=== PATIENT | female | born 1985 | race Caucasian/White ===

== ENCOUNTER 2021-05-07 11:35 | Emergency (ER) | payer MEDICAID ==
[2021-05-07] MEDS ORDERED: SODIUM CHLORIDE 0.9% 1,000 ML IV STA (12:59)
[2021-05-07] MEDS ORDERED: diphenhydrAMINE INJ 50 MG/ML VIAL IVP STA (12:59)
[2021-05-07] MEDS ORDERED: DROPERIDOL 5 MG/2 ML VIAL IVP STA (12:59)
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
[2021-05-07] MEDS ORDERED: SUMAtriptan 6 MG/0.5 ML VIAL SUBQ STA (14:01)
[2021-05-07 14:20] VITALS: BP 101/67
== END 2021-05-07 14:51 | disposition home or self-care (01) ==
LOC: ED 11:35
DX: G43.901 Migraine, unspecified, not intractable, with status migrainosus (principal)
CPT/HCPCS: 96374; 96375; 99283; J1200

== ENCOUNTER 2021-05-21 08:46 | Emergency (ER) | payer MEDICAID ==
--- NOTE | 2021-05-21 09:30 | ED Physician Documentation ---
PD HPI HEADACHE - Stated complaint Stated Complaint: HEAD PX - Chief complaint Chief Complaint: Neuro - History obtained from History obtained from: Patient - History of Present Illness Timing - onset: Yesterday Timing - onset during: Light activity Timing - duration: Days (1) Timing - details: Gradual onset, Still present, Waxing and waning (improved but not resolved temporarily with Imitrex and Ibuprofen.) Worst headache ever?: No: Worst headache ever? (feeling similar to prior migraines, but is more consistent. Has had improvement in migraines with recent Imitrex Rx, but the one yesterday was not resolved with it.) Location: Front, Right Quality: Throbbing, Aching Associated symptoms: Nausea. No: Fever, Stiff neck, Vomiting Improved by: Dark room. No: Meds (brief improved with Imitrex PO and Ibuprofen.) Worsened by: Light Similar symptoms before: Diagnosis (migraines, but are recently more frequent and had one lasted few weeks recently. Seen by PCP and has Rx for higher dose Imitrex, and pt was started on Topirimate couple days ago.) Recently seen: Clinic, Emergency Dept Review of Systems Constitutional: denies: Fever, Chills Nose: denies: Rhinorrhea / runny nose, Congestion Throat: denies: Sore throat Respiratory: denies: Cough GI: reports: Nausea. denies: Vomiting Skin: denies: Rash, Lesions Neurologic: denies: Focal weakness, Numbness, Altered mental status PD PAST MEDICAL HISTORY - Past Medical History Past Medical History: Yes Cardiovascular: None Respiratory: None Neuro: Migraines Endocrine/Autoimmune: None GI: None FOLDER OPERATOR: None : None HEENT: None Psych: Anxiety Musculoskeletal: None Derm: None - Past Surgical History Past Surgical History: Yes Derm: Skin cancer surgery - Present Medications Home Medications: Ambulatory Orders Medication Instructions Recorded Confirmed SUMAtriptan [Imitrex] 25 mg PO BID PRN #10 tablet 05/07/21 05/21/21 Ibuprofen [Motrin] 600 mg PO TID PRN #20 tab 05/21/21 Ondansetron Odt [Zofran] 4 mg TL Q6H PRN #10 tablet 05/21/21 Topiramate [Topamax] 25 mg PO HS 05/21/21 05/21/21 - Allergies Allergies/Adverse Reactions: Allergies Allergy/AdvReac Type Severity Reaction Status Date / Time No Known Drug Allergies Allergy Verified 05/21/21 09:04 - Social History Does the pt smoke?: No Smoking Status: Never smoker Does the pt drink ETOH?: No Does the pt have substance abuse?: No - Immunizations Immunizations are current?: Yes PD ED PE NORMAL - Vitals Vital signs reviewed: Yes - General General: Alert and oriented X 3, No acute distress, Well developed/nourished - HEENT HEENT: Atraumatic, Pharynx benign - Neck Neck: Supple, no meningeal sign, No adenopathy - Cardiac Cardiac: RRR, No murmur - Respiratory Respiratory: Clear bilaterally - Abdomen Abdomen: Soft, Non tender - Derm Derm: Normal color, Warm and dry - Extremities Extremities: Normal ROM s pain - Neuro Neuro: Alert and oriented X 3, 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 ), considered differential (seems migraine. She prefers trying IM meds rather than IV. ), d/w patient Departure - Departure Disposition: 01 Home, Self Care Clinical Impression: Migraine Condition: Stable Record reviewed to determine appropriate education?: Yes Prescriptions: Ibuprofen [Motrin] 600 mg PO TID PRN #20 tab PRN Reason: Pain Ondansetron Odt [Zofran] 4 mg TL Q6H PRN #10 tablet PRN Reason: Nausea / Vomiting Comments: Small frequent fluids and rest today. Can use some ibuprofen or Tylenol for persistent mild headache. Ondansetron if needed for nausea. Subsequently use the sumatriptan along with an ibuprofen and ondansetron for recurrent headaches as needed. Continue the new topiramate and hopefully that will decrease the frequency and severity of the migraines over the next couple of weeks. Follow-up with your primary care as needed. Return to the ER if needed. Discharge Date/Time: 05/21/21 11:10
[2021-05-21] MEDS ORDERED: SUMAtriptan 6 MG/0.5 ML VIAL SUBQ STA (09:48)
[2021-05-21] MEDS ORDERED: KETOROLAC 15 MG/ML VIAL IM STA (09:48)
[2021-05-21] MEDS ORDERED: ONDANSETRON ODT 4 MG TABLET TL STA (09:48)
[2021-05-21] MEDS ORDERED: CHERRY SYRUP 10 ML UDC PO ONE (10:35)
[2021-05-21] MEDS ORDERED: DEXAMETHASONE 10 MG/ML VIAL PO STA (10:35)
[2021-05-21 11:01] VITALS: BP 106/77
== END 2021-05-21 11:10 | disposition home or self-care (01) ==
LOC: ED 08:46
DX: G43.909 Migraine, unspecified, not intractable, without status migrainosus (principal)
CPT/HCPCS: 96372; 99283; 99284; A9270; Q0162

== ENCOUNTER 2021-07-26 08:21 | Outpatient (CLI) | payer MEDICAID ==
[2021-07-26 08:52] LABS: EOSINOPHILS % (AUTO) 0.8 %; HCT - HEMATOCRIT 38.6 % (37.0-47.0); HGB - HEMOGLOBIN 11.7 g/dL (12.0-16.0); LYMPHOCYTES # (AUTO) 1.4 10^3/uL (1.5-3.5); LYMPHOCYTES % (AUTO) 35.4 %; MEAN CORPUSCULAR HEMOGLOBIN 26.7 pg (27.0-31.0); MEAN CORPUSCULAR HGB CONC 30.3 g/dL (32.0-36.0); MEAN CORPUSCULAR VOLUME 88.1 fL (81.0-99.0); MEAN PLATELET VOLUME 9.9 fL (7.9-10.8); MONOCYTES # (AUTO) 0.4 10^3/uL (0.0-1.0); MONOCYTES % (AUTO) 9.4 %; NEUTROPHILS % (AUTO) 53.1 %; PLT - PLATELET COUNT 275 10^3/uL (130-450); RED BLOOD COUNT 4.38 10^6/uL (4.20-5.40); RED CELL DISTRIBUTION WIDTH 14.7 % (12.0-15.0); WHITE BLOOD COUNT 3.8 x10^3/uL (4.8-10.8)
[2021-07-26 09:15] LABS: ALBUMIN 4.3 g/dL (3.2-5.5); ALBUMIN/GLOBULIN RATIO 1.4 (1.0-2.2); ALKALINE PHOSPHATASE 65 IU/L (42-121); ALT ALANINE AMINOTRANSFERASE 21 IU/L (10-60); AST ASPARTATE AMINOTRANSFERASE 20 IU/L (10-42); BILIRUBIN,TOTAL 0.8 mg/dL (0.2-1.0); BUN - BLOOD UREA NITROGEN 11 mg/dL (6-20); CALCIUM 9.4 mg/dL (8.5-10.3); CARBON DIOXIDE - CO2 22 mmol/L (21-32); CHLORIDE 110 mmol/L (101-111); CHOLESTEROL 170 mg/dL; CREATININE 0.5 mg/dL (0.4-1.0); GFR - MDRD 139 (>89); GLUCOSE 96 mg/dL (70-100); HDL CHOLESTEROL 56 mg/dL; LDL CHOLESTEROL,CALCULATED 102 mg/dL; LDL/HDL RATIO 1.8 (<4.4); SODIUM 140 mmol/L (135-145); TOTAL PROTEIN 7.3 g/dL (6.7-8.2); TRIGLYCERIDES 59 mg/dL; VLDL CHOLESTEROL 12 mg/dL
[2021-07-26 09:26] LABS: THYROID STIMULATING HORMONE 2.88 uIU/mL (0.34-5.60)
[2021-07-26 10:01] LABS: BILIRUBIN,URINE NEGATIVE (NEGATIVE); GLUCOSE, URINE (UA) NEGATIVE (NEGATIVE); KETONES,URINE (UA) NEGATIVE (NEGATIVE); LEUKOCYTE ESTERASE, URINE NEGATIVE (NEGATIVE); NITRITE,URINE NEGATIVE (NEGATIVE); OCCULT BLOOD,URINE NEGATIVE (NEGATIVE); PH,URINE 6.5 PH (5.0-7.5); PROTEIN,URINE NEGATIVE (NEGATIVE); UROBILINOGEN,URINE 0.2 (NORMAL) E.U./dL (NORMAL)
[2021-07-26 10:02] LABS: CLARITY,URINE CLEAR (CLEAR)
[2021-07-26 10:33] LABS: BACTERIA,URINE Few /HPF (None Seen); RBC,URINE 0-5 /HPF (0-5); SQUAMOUS EPITHELIAL CELL,UR MOD Squamous (<= Few); WBC,URINE 0-3 /HPF (0-5)
== END 2021-07-26 08:22 | disposition home or self-care (01) ==
LOC: LAB 08:21
PROVIDERS: ATTEND Nurse Practitioner
DX: R53.83 Other fatigue (principal); Z13.220 Encounter for screening for lipoid disorders
CPT/HCPCS: 36415; 80053; 80061; 81001; 83721; 84443; 85025; 87086